=== PATIENT | female | born 1985 | race Caucasian/White ===

== ENCOUNTER 2018-06-17 19:11 | Emergency (ER) | payer OTHER ==
[2018-06-17 19:24] VITALS: BP 120/77; PULSE 96; TEMP 98.1; BMI 28.3
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
[2018-06-17] MEDS ORDERED: ACETAMINOPHEN 325 MG TABLET (FP) PO ONE (21:13)
[2018-06-17] MEDS ORDERED: ACETAMINOPHEN 325 MG TABLET (FP) ONE (21:33)
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
== END 2018-06-18 00:32 | disposition home or self-care (01) ==
LOC: JER 19:11
DX: S09.8XXA Other specified injuries of head, initial encounter (principal); V43.52XA Car driver injured in collision with other type car in traffic accident, initial encounter; Y92.414 Local residential or business street as the place of occurrence of the external cause; Y93.89 Activity, other specified; Y99.8 Other external cause status
CPT/HCPCS: 70450-TC; 72125-TC; 84703; 99282-25

== ENCOUNTER 2019-01-09 13:38 | Emergency (ER) | payer OTHER ==
[2019-01-09 13:47] VITALS: BP 108/63; PULSE 85; TEMP 99.1; BMI 29.1
--- NOTE | 2019-01-09 14:15 | PDOC ---
History of Present Illness - General Chief Complaint: Sore Throat Stated Complaint: FLU LIKE SYSTOMS Time Seen by Provider: 01/09/19 13:46 - History of Present Illness Initial Comments: 01/09/19 14:04 CHIEF COMPLAINT: sore throat HISTORY OF PRESENT ILLNESS: 33 yo F with no significant PMH presents to [facility] with sore throat x 3 days accompanied by chills, fever. Patient reports pain with swallowing but has no difficulty speaking full sentences. She reports having taken Advil liquidgels with some relief. No recent travel or sick contacts. PAST MEDICAL HISTORY: Denies past medical history FAMILY HISTORY: Denies SOCIAL HISTORY: Denies tobacco, alcohol, illicit drug use. SURGICAL HISTORY: Denies ALLERGIES: No known drug allergies REVIEW OF SYSTEMS General/Constitutional: Denies fever or chills. Denies weakness, weight change. HEENT: Denies change in vision. Denies ear pain or discharge. Denies sore throat. Cardiovascular: Denies chest pain or shortness of breath. Respiratory: Denies cough, wheezing, or hemoptysis. Gastrointestinal: Denies nausea, vomiting, diarrhea or constipation. Denies rectal bleeding. Genitourinary: Denies dysuria, frequency, or change in urination. Musculoskeletal: Denies joint or muscle swelling or pain. Denies neck or back pain. Skin and breasts: Denies rash or easy bruising. Neurologic: Denies headache, vertigo, loss of consciousness, or loss of sensation. Psychiatric: Denies depression or anxiety. PHYSICAL EXAM General Appearance: Well-appearing, appropriately dressed. No apparent distress , no intoxication. HEENT: White exudate to R tonsil. EOMI, PERRLA, normal voice, TMs normal. No conjunctival pallor. No photophobia, scleral icterus. Neck: Supple. Trachea midline. No tenderness, rigidity, carotid bruit, stridor , lymphadenopathy, or thyromegaly. Respiratory/Chest: Lungs CTAB. No shortness of breath, chest tenderness, respiratory distress, accessory muscle use. No crackles, rales, rhonchi, stridor , wheezing, dullness Cardiovascular: RRR. S1, S2. No JVD, murmur, bradycardia, tachycardia. Vascular Pulses: Dorsalis-Pedis (R): 2+, Dorsalis-Pedis (L): 2+ Gastrointestinal/Abdominal: Normal bowel sounds. Abdomen soft, non-distended. No tenderness or rebound tenderness. No organomegaly, pulsatile mass, guarding , hernia, hepatomegaly, splenomegaly. Lymphatic: No adenopathy, tenderness. Musculoskeletal/Extremities: Normal inspection. FROM of all extremities, normal capillary refill. Pelvis Stable. No CVA tenderness. No tenderness to extremities, pedal edema, swelling, erythema or deformity. Integumentary: Appropriate color, dry, warm. No cyanosis, erythema, jaundice or rash Neurologic: pipe out worker II-XII intact. Fully oriented, alert. Appropriate mood/affect. Motor strength 5/5. No appreciable EOM palsy, facial droop or sensory deficit. Past History - Past Medical History Allergies/Adverse Reactions: Allergies Allergy/AdvReac Type Severity Reaction Status Date / Time No Known Allergies Allergy Verified 06/17/18 19:24 Home Medications: Ambulatory Orders Phenol/Glycerin [Chloraseptic Max [place]] 30 ml MM Q2H PRN #1 spray 01/09/19 COPD: No - Immunization History Immunization Up to Date: Yes - Psycho Social/Smoking Cessation Hx Smoking History: Never smoked Information on smoking cessation initiated: No Hx Alcohol Use: No Drug/Substance Use Hx: No *Physical Exam - Vital Signs Last Vital Signs Temp Pulse Resp BP Pulse Ox 99.1 F 85 17 108/63 100 01/09/19 13:45 01/09/19 13:45 01/09/19 13:45 01/09/19 13:45 01/09/19 13:45 Medical Decision Making - Medical Decision Making 01/09/19 14:15 33 yo F with no significant PMH presents to [facility] with sore throat x 3 days accompanied by chills, fever. -strep swab 01/09/19 15:17 strep negative Discharge - Discharge Information Problems reviewed: Yes Clinical Impression/Diagnosis: Acute pharyngitis Qualifiers: Pharyngitis/tonsillitis etiology: unspecified etiology Qualified Code(s): J02.9 - Acute pharyngitis, unspecified Condition: Stable Disposition: HOME - Admission No - Additional Discharge Information Prescriptions: Phenol/Glycerin [Chloraseptic Max [place]] 30 ml MM Q2H PRN #1 spray PRN Reason: Sore Throat - Follow up/Referral - Patient Discharge Instructions Patient Printed Discharge Instructions: DI for Viral Pharyngitis Additional Instructions: Please use medication as prescribed. If you develop any new or worsening symptoms, please return to the ER. - Post Discharge Activity
== END 2019-01-09 15:26 | disposition home or self-care (01) ==
LOC: JERFT 13:38
DX: J02.9 Acute pharyngitis, unspecified (principal)
CPT/HCPCS: 87070; 87880; 99282-25